=== PATIENT | male | born 1990 | race Caucasian/White ===

== ENCOUNTER 2016-02-28 09:42 | Emergency (ER) | payer MEDICARE, MEDICAID ==
[~2016-02-28 09:42] MED LIST: ABILIFY 15MG TA15 MG PO; PEG 335017 GM/Dose PO; VENLAFAXINE HYD75 M1 PO
[2016-02-28] MEDS ORDERED: KETOROLAC TROME10 MG PO (10:22)
== END 2016-02-28 10:33 | disposition home or self-care (01) ==
LOC: ED 09:42
DX: J02.9 Acute pharyngitis, unspecified (principal); F17.210 Nicotine dependence, cigarettes, uncomplicated

== ENCOUNTER 2016-08-08 11:13 | Emergency (ER) | payer MEDICARE, MEDICAID ==
[~2016-08-08 11:13] MED LIST changes: +KETOROLAC TROME10 MG PO
[2016-08-08 11:17] VITALS: BP 148/74
[2016-08-08] MEDS ORDERED: ABILIFY MA400 MG/Via IM (11:25)
[2016-08-08] MEDS ORDERED: MORGIDOX 1X100100 MG PO ×2 (11:35→11:42)
== END 2016-08-08 12:05 | disposition home or self-care (01) ==
LOC: ED 11:13
DX: L98.9 Disorder of the skin and subcutaneous tissue, unspecified (principal)